=== PATIENT | female | born 2000 | race Caucasian/White ===

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

== ENCOUNTER → 2022-04-01 13:40 | Outpatient (CLI) | payer OTHER, MEDICAID, SELFPAY ==
--- NOTE | 2022-04-01 13:42 | DI.US.S_ITS ---
PROCEDURE: US PELVIC COMPLETE INDICATIONS: Menorrhagia TECHNIQUE: Real-time scanning was performed of the pelvic organs, with image documentation. Additional endovaginal scanning was necessary due to incomplete visualization of the adnexal and endometrial structures by transabdominal scanning. COMPARISON: [facility], CT, CT ABDOMEN PELVIS W CON, 08/14/2019, 13:55. [facility], US, US PELVIC COMPLETE, 08/14/2019, 15:17. FINDINGS: Uterus: Uterus is anteverted and normal in size at 6.9 x 3.2 x 4.5 cm. The myometrium is homogeneous. The endometrium measures 8 mm combined thickness. Tiny cysts are seen along the endometrial stripe. Ovaries: The right ovary measures 3.3 x 2.1 x 2.1 cm, with a calculated ovarian volume of 7.6 cc. The left ovary measures 4.1 x 1.8 x 2.5 cm, with a calculated ovarian volume of 9.6 cc. The ovaries have a normal sonographic appearance. More than 12 follicles can be seen in each ovary. No adnexal masses are seen. Other: A mild amount of free pelvic fluid is seen, which is considered to be within physiologic limits. IMPRESSION: More than 12 follicles can be seen involving each ovary, which is consistent with polycystic ovarian syndrome. We strive to produce accurate, complete, and clear reports of imaging services. To assist us in improving patient care, this report was composed using standard report templates and voice recognition software. Therefore, it may contain abnormal punctuation, insertions and/or omissions. Occasional wrong-word or sound-alike substitutions may occur. Though we review the report and make efforts to correct it, we do recommend that the report be read carefully in proper context to recognize any text inaccuracies. Dictated by: Jerad Dotson M.D. on 04/01/2022 at 14:36 Approved by: Jerad Dotson M.D. on 04/01/2022 at 14:38
== END ==
PROVIDERS: PCP Family Medicine; Referring Provider Family Medicine; Visit Provider Family Medicine
DX: N92.0 Excessive and frequent menstruation with regular cycle (principal); N94.6 Dysmenorrhea, unspecified
CPT/HCPCS: 76830; 76856

== ENCOUNTER → 2022-04-07 11:41 | Outpatient (CLI) | payer OTHER, MEDICAID, SELFPAY ==
--- NOTE | 2022-04-07 | DI.RAD.S_ITS ---
PROCEDURE: XR CHEST 2V INDICATIONS: TACHYCARDIA TECHNIQUE: 2 views of the chest were acquired. COMPARISON: None. FINDINGS: Surgical changes and devices: None. Lungs and pleura: Lungs are clear. No pleural effusions or pneumothorax. Mediastinum: Mediastinal contours are normal. Heart size is normal. Bones and chest wall: No suspicious bony abnormalities. Soft tissues appear unremarkable. IMPRESSION: No acute cardiopulmonary disease. Dictated by: Natasha Persaud M.D. on 04/07/2022 at 16:23 Approved by: Natasha Persaud M.D. on 04/07/2022 at 16:23
== END ==
PROVIDERS: PCP Family Medicine; Referring Provider Family Medicine; Visit Provider Family Medicine
DX: R00.0 Tachycardia, unspecified (principal)
CPT/HCPCS: 71046

== ENCOUNTER → 2022-06-25 13:25 | Outpatient (CLI) | payer OTHER, MEDICAID, SELFPAY | PROVIDERS: PCP Family Medicine; Visit Provider Nurse Practitioner Family | DX: J02.9 Acute pharyngitis, unspecified (principal) | CPT/HCPCS: 87070; 87880 ==

== ENCOUNTER 2023-08-15 20:22 | Emergency (ER) | payer SELFPAY ==
[2023-08-15 20:25] VITALS: BP 134/60; PULSE 85; RESP 16; TEMP 36.6; O2SAT 97; BMI 22.9
[2023-08-16] MEDS: PROCHLORPERAZINE 10 MG/2 ML VIAL IV (00:09)
[2023-08-16] MEDS: diphenhydrAMINE 50 MG/ML VIAL 25 MG IV (00:11)
[2023-08-16] MEDS: DEXAMETHASONE 10 MG/ML VIAL IV (00:12)
[2023-08-16] MEDS: SODIUM CHLORIDE 0.9% 1,000 ML 1000 ML IV (00:13)
--- NOTE | 2023-08-16 01:32 | ED.HA ---
HPI - Headache General Chief Complaint: Headache Stated Complaint: headache/lt eye and ear pain Time Seen by Provider: 08/15/23 23:52 Mode of arrival: Ambulatory History of Present Illness HPI Narrative: 23-year-old woman with a history of depression and occasional headaches presents with 2 days of headache, mild photophobia. She reports that ibuprofen cause GI upset so she does not take this. She has not tried any other medications for this current headache. No fevers, cough, chills. No acute neurologic findings, chest pain or palpitations. No recent nasal stuffiness or seasonal allergies. Related Data Home Medications Medication Instructions Recorded Confirmed hydroxyzine HCl 10 mg tablet 10 mg PO TID 04/22/22 08/15/23 escitalopram oxalate 5 mg tablet 5 mg PO DAILY 06/25/22 08/15/23 (Lexapro) L norgest/E estradiol-E estrad 1 tab PO DAILY 08/15/23 08/15/23 0.15 mg-30 mcg (84)/10 mcg(7) tabs,3mos (Daysee) Allergies Allergy/AdvReac Type Severity Reaction Status Date / Time ibuprofen Allergy Mild Verified 08/15/23 20:29 Review of Systems Review of Systems Narrative: Pertinent positive and negative findings as per HPI Patient History Medical History (Updated 08/16/23 @ 01:41 by Jannette Childress MD) Migraine Irregular menstrual cycle Social History Smoking Status: Never smoker Smoking Status: Never smoker Substance Use Type: does not use Exam Initial Vital Signs Initial Vital Signs: Vital Signs Temperature 98 F 08/15/23 20:25 Pulse Rate 85 08/15/23 20:25 Respiratory Rate 16 08/15/23 20:25 Blood Pressure 134/60 08/15/23 20:25 Pulse Oximetry 97 08/15/23 20:25 Oxygen Delivery Method Room Air 08/15/23 20:25 General: Healthy appearing, in no acute distress. Able to give a complete and coherent history. Well-nourished well-developed HEENT: Moist mucous membranes, normal sclera with reactive pupils, Respiratory: Lungs are clear to auscultation, no wheezing no rales no rhonchi. Full and symmetrical air movement Cardiac: Regular rate and rhythm no murmurs no bruits Abdomen: Soft, nontender, good bowel tones, no flank pain Neurologic: Grossly neurologically intact with no obvious asymmetries or abnormalities Psych: Cooperative, appropriate insight and affect Course Orders Ordered: Discontinued Medications Dexamethasone (Dexamethasone 10 Mg/Ml Vial) 10 mg IV NOW ONE Stop: 08/15/23 23:53 Last Admin: 08/16/23 00:12 Dose: 10 mg Documented By: BLANCO Diphenhydramine HCl (Diphenhydramine 50 Mg/Ml Vial) 25 mg IV NOW ONE Stop: 08/15/23 23:53 Last Admin: 08/16/23 00:11 Dose: 25 mg Documented By: BLANCO Sodium Chloride (Normal Saline 0.9%) 1,000 mls @ 1,000 mls/hr IV BOLUS ONE Stop: 08/16/23 00:51 Last Infusion: 08/16/23 01:22 Dose: Infused Documented By: Admin: 08/16/23 00:13 Dose: 1,000 mls/hr Documented By: BLANCO Prochlorperazine (Prochlorperazine 10 Mg/2 Ml Vial) 10 mg IV NOW ONE Stop: 08/15/23 23:53 Last Admin: 08/16/23 00:09 Dose: 10 mg Documented By: BLANCO Vital Signs Vital signs: Vital Signs - 8 hr 08/15/23 20:25 Temperature 98 F Pulse Rate 85 Respiratory Rate 16 Blood Pressure 134/60 Pulse Oximetry 97 Oxygen Delivery Method Room Air MDM - Headache MDM Narrative Medical decision making narrative: CC: Migraine Complicating co-morbidities: History of intermittent migraine, depression, currently on control pills Data collected from: patient Differential considered: Migraine, tension headache, upper respiratory infection Exam documented above, pertinent findings include: Physical exam is benign Treatments: Parenteral fluids, Compazine, dexamethasone, Benadryl Discussion: 23-year-old woman with occasional headaches. This has been present for 2 days. Responded nicely to our headache cocktail. She has a history of intolerance to ibuprofen that is mild GI upset so she was not given any Toradol. We talked about trying some Excedrin. She has not taken any of the [id number] medications over the last 2 days with her current headache. Hopefully to Excedrin early on in the course of the headache can prevent another ER visit. I also encouraged her to discuss her headaches with her primary care physician. At this point with symptoms entirely resolved I do not see any indication for infection, there was no clinical signs or symptoms of stroke, no additional workup, imaging or hospitalization is required at this time. Questions are answered and she is safe for discharge Discharge Plan Departure Patient Disposition: Home Clinical Impression: Migraine Instructions: DI for Migraine Activity Restrictions/Additional Instructions: Thank you for coming in tonight We treated your headache with our usual migraine combination including fluids, Compazine (a nausea medicine that can directly help with headaches), Benadryl and a dose of dexamethasone which is a steroid to reduce inflammation and help so that when you wake in the morning your headache has not returned. I would recommend trying Excedrin the next time you develop a low-grade headache and see if you can prevent it from developing into a 2 day awful experience If you find that you are getting worse or develop any new symptoms, please feel free to return to the emergency department for further evaluation. Prescriptions: No Action escitalopram oxalate [Lexapro] 5 mg tablet 5 mg PO DAILY hydroxyzine HCl 10 mg tablet 10 mg PO TID L norgest/e.estradiol-e.estrad [Daysee] 0.15 mg-30 mcg (84)/10 mcg (7) tablets,dose pack,3 month 1 tab PO DAILY Referrals: Kelley Reddy MD [Primary Care Provider] - Stand Alone Forms: Patient Portal/API
[2023-08-16 01:55] VITALS: BP 128/59; PULSE 78; RESP 18; O2SAT 99
== END 2023-08-16 01:57 | disposition home or self-care (01) ==
PROVIDERS: Emergency Provider Emergency Medicine; PCP Family Medicine
DX: G43.909 Migraine, unspecified, not intractable, without status migrainosus (principal)
CPT/HCPCS: 96374; 96375; 99283; J0780; J1100; J1200

== ENCOUNTER 2024-11-14 18:32 | Emergency (ER) | payer SELFPAY ==
[2024-11-14 18:48] VITALS: BP 143/79; PULSE 90; RESP 16; TEMP 37.1; O2SAT 99; BMI 27.4
[2024-11-14 19:32] LABS: Culture Indicated Urine Cult Not Indicated
[2024-11-14] MEDS: ACETAMINOPHEN 325 MG TABLET 975 MG PO (19:38)
--- NOTE | 2024-11-14 20:56 | ED.ABDPAIN ---
HPI - Abdominal Pain General Chief Complaint: Abdominal Pain Stated Complaint: bad cramps Time Seen by Provider: 11/14/24 20:55 Source: patient Mode of arrival: Ambulatory History of Present Illness HPI narrative: 24-year-old female with a history of endometriosis and PCOS who presents with complaint of left lower quadrant abdominal cramping. Patient states she occasionally gets really bad cramps in the past but had recently started control. Patient states last menstrual period was around September 22. She states she had some spotting towards the end of September but not a typical., she has started her control at that time she has been on it since. She has been skipping of the placebo tablets. She noted a large clots and some spotting today. She states the clot was very hard and places. She denies any fevers or chills. States pain was pretty intense earlier but it is significantly improved. Does have little bit of lower back cramping with it. She denies any diarrhea or constipation. She denies any frequency, dysuria urgency but does note she has been up at night more to urinate which is atypical. But she is urinating regularly throughout the day. She notes besides oral contraceptive she is on Lexapro daily. Reports allergies to ibuprofen, penicillin, amoxicillin hydrocodone. No regular tobacco, no daily alcohol, no recreational drugs. Related Data Home Medications ?Medication ?Instructions ?Recorded ?Confirmed hydroxyzine HCl 10 mg tablet 10 mg PO TID 04/22/22 06/11/24 escitalopram oxalate 5 mg tablet 5 mg PO DAILY 06/25/22 06/11/24 (Lexapro) L norgest/E estradiol-E estrad 1 tab PO DAILY 08/15/23 06/11/24 0.15 mg-30 mcg (84)/10 mcg(7) tabs,3mos (Daysee) Previous Rx's ?Medication ?Instructions ?Recorded benzonatate 200 mg capsule 200 mg PO BID PRN cough #28 caps 06/11/24 Allergies Allergy/AdvReac Type Severity Reaction Status Date / Time ibuprofen Allergy Mild Vomiting Verified 11/14/24 18:49 Penicillins Allergy Unknown Hives Verified 11/14/24 18:49 amoxicillin Allergy Hives Verified 11/14/24 18:49 hydrocodone Allergy Hives Verified 11/14/24 18:49 Review of Systems Review of Systems ROS Unobtainable: All systems reviewed & are unremarkable except as noted in HPI and below Patient History Medical History Migraine Irregular menstrual cycle Social History Smoking Status: Never smoker Smoking Status: Never smoker Exam Narrative Exam Narrative: GENERAL: Alert and oriented x three, female in mild distress HEENT: Head normocephalic, atraumatic, EOMI, pupils reactive, face symmetric, moist mucous membranes NECK: Supple, full range of motion CARDIOVASCULAR: Regular rate and rhythm without murmurs, rubs or gallops. RESPIRATORY: Breath sounds equal bilaterally, no wheezes rales or rhonchi. ABDOMEN: Soft, mild left lower quadrant tenderness. Normoactive bowel sounds all 4 quadrants. No guarding or rebound, rigidity, no mass : No CVA tenderness EXTREMITIES: Normal range of motion, no clubbing or edema. Neurovascularly intact NEUROLOGICAL: Cranial nerves II through XII grossly intact. Moving all extremities SKIN: Warm, dry, no petechiae, no rashes or lesions. Initial Vital Signs Initial Vital Signs: Vital Signs Temperature 98.7 F 11/14/24 18:48 Pulse Rate 90 11/14/24 18:48 Respiratory Rate 16 11/14/24 18:48 Blood Pressure 143/79 H 11/14/24 18:48 Pulse Oximetry 99 11/14/24 18:48 Oxygen Delivery Method Room Air 11/14/24 18:48 Course Orders Ordered: ED Orders 11/14/24 19:00 Urine Microscopic Stat 11/14/24 21:16 US pelvic complete Stat Discontinued Medications Acetaminophen (Acetaminophen 325 Mg Tablet) 975 mg PO NOW ONE Stop: 11/14/24 19:29 Last Admin: 11/14/24 19:38 Dose: 975 mg Documented By: LOURDES Ondansetron HCl (Ondansetron 4 Mg Odt) 4 mg PO NOW PRN PRN Reason: Nausea And Vomiting Vital Signs Vital signs: Vital Signs - 8 hr 11/14/24 18:48 11/14/24 23:06 Temperature 98.7 F Pulse Rate 90 76 Respiratory Rate 16 16 Blood Pressure 143/79 H 123/58 L Pulse Oximetry 99 94 Oxygen Delivery Method Room Air Room Air MDM - Abdominal Pain Lab Data Labs: Lab Results 09/17/25 Range/Units 19:00 Urine RBC 1-5/hpf D (0-5/HPF) Urine WBC 0-1/hpf (0-5/HPF) Ur Squamous Epith Cells 1-5 /hpf (0-5/HPF) Urine Bacteria Occasional (0-1) (None) Ur Culture Indicated? Cult not indicated Vol Urine Centrifuged 10ml (spun) Point of care testing: Point of Care Testing Test Results Negative Urine Dip Bedside Urine Glucose Negative Bedside Urine Bilirubin - Negative Bedside Urine Ketone - Negative Urine Specific [place] 1.015 Bedside Urine Occult Blood ++ Bedside Urine pH 6.0 Bedside Urine Protein - Negative Bedside Urine Urobilinogen - Negative Bedside Urine Nitrite - Negative Bedside Urine Leukocytes - Negative Esterase MDM Narrative Medical decision making narrative: Point of care is negative. Positive for blood no nitrates no leuks, no glucose. 1-5 RBCs 1 white cell 1-5 squamous 1 bacteria. Pelvic ultrasound, mildly heterogeneous endometrium no ischemia mass or fluid, no discrete uterine fibroids, no ovarian mass, no evidence of ovarian torsion greater than 12 follicle seen in each ovary. Findings meet ultrasound definition of polycystic ovaries in the absence of a true dysfunction or clinically/biochemically diagnosed hyperandrogenism findings are nonspecific and do not indicate the presence of PCOS. Patient has a acetaminophen Discharge Plan Departure Patient Disposition: Home Clinical Impression: Vaginal bleeding Activity Restrictions/Additional Instructions: Follow up as needed. Your ultrasound shows changes consistent with your history of PCOS. I would recommend you continue on your oral contraceptives/ control at this time. Please return if you develop new or worsening abdominal back or flank pain, fevers, persistent vomiting, bleeding through more than a pad or tampon an hour or other new or concerning changes. Prescriptions: No Action escitalopram oxalate [Lexapro] 5 mg tablet 5 mg PO DAILY benzonatate 200 mg capsule 200 mg PO BID PRN (Reason: cough) Qty: 28 0RF hydroxyzine HCl 10 mg tablet 10 mg PO TID L norgest/e.estradiol-e.estrad [Daysee] 0.15 mg-30 mcg (84)/10 mcg (7) tablets,dose pack,3 month 1 tab PO DAILY Referrals: Kaur Nicolas ARNP [Primary Care Provider, Family Practice] Stand Alone Forms: Patient Portal/API
--- NOTE | 2024-11-14 21:16 | DI.US.S_ITS ---
PROCEDURE: US PELVIC COMPLETE INDICATIONS: PAIN; PASSED LARGE CLOT TECHNIQUE: Real-time scanning was performed of the pelvic organs, with image documentation. Additional endovaginal scanning was necessary due to incomplete visualization of the adnexal and endometrial structures by transabdominal scanning. COMPARISON: [facility], US, US PELVIC COMPLETE, 04/01/2022, 14:17. FINDINGS: Uterus: Uterus is anteverted and normal in size at 7.5 x 4.1 x 6.7 cm. The myometrium is homogeneous. The endometrium measures 12.2 mm combined thickness. Mildly heterogeneous endometrium. No discrete endometrial mass or fluid. Ovaries: The right ovary measures 3.2 x 1.9 x 1.9 cm, with a calculated ovarian volume of 6.0 cc. The left ovary measures 3.7 x 1.8 x 2.2 cm, with a calculated ovarian volume of 7.6 cc. The ovaries have a normal sonographic appearance. Greater than 12 follicles can be seen in each ovary. No adnexal masses are seen. Other: No pathologic free abdominal or pelvic fluid. IMPRESSION: 1. Mildly heterogeneous endometrium. No endometrial mass or fluid. 2. No discrete uterine fibroids. 3. No ovarian mass. No evidence of ovarian torsion. Greater than 12 follicles are seen in each ovary. Findings meet the [place] definition of polycystic ovaries. In the absence of ovulatory dysfunction or clinically/biochemically diagnosed hyperandrogenism, findings are non specific and do not indicate the presence of polycystic ovarian syndrome. We strive to produce accurate, complete, and clear reports of imaging services. To assist us in improving patient care, this report was composed using standard report templates and voice recognition software. Therefore, it may contain abnormal punctuation, insertions and/or omissions. Occasional wrong-word or sound-alike substitutions may occur. Though we review the report and make efforts to correct it, we do recommend that the report be read carefully in proper context to recognize any text inaccuracies. Dictated by: Toni Al M.D. on 11/14/2024 at 22:37 Approved by: Toni Al M.D. on 11/14/2024 at 22:40
[2024-11-14 23:06] VITALS: BP 123/58; PULSE 76; RESP 16; O2SAT 94
== END 2024-11-14 23:05 | disposition home or self-care (01) ==
PROVIDERS: Emergency Provider Emergency Medicine; PCP Nurse Practitioner Family
DX: R10.32 Left lower quadrant pain (principal); N93.9 Abnormal uterine and vaginal bleeding, unspecified
CPT/HCPCS: 76830; 76856; 81003; 81015; 81025; 99283